=== PATIENT | female | born 1970 | race Caucasian/White ===

== ENCOUNTER 2021-07-01 13:51 | Emergency (ER) | payer OTHER ==
[~2021-07-01] VITALS: Ht 165.1 cm; Wt 96.0 kg
[2021-07-01 14:08] VITALS: BP 122/67
[2021-07-01] MEDS ORDERED: ONDANSETRON 4MG ODT PO STA (17:03)
[2021-07-01] MEDS ORDERED: MAGNESIUM/ALUMINUM HYDROXIDE/SIMETHICONE 30ML UDC PO STA (17:03)
[2021-07-01] MEDS ORDERED: FAMOTIDINE 20MG TABLET PO ONE (17:15)
[2021-07-01 17:31] LABS: BASOPHILS % 0.7 % (0.0-2.0); EOSINOPHILS % 1.4 % (0.0-5.0); HEMATOCRIT. 41.1 % (36.0-48.0); HEMOGLOBIN. 14.1 g/dL (12.0-16.0); LYMPHOCYTES % 38.5 % (20.0-50.0); MEAN CORPUSCULAR HEMOGLOBIN 28.8 pg (28.0-32.0); MEAN CORPUSCULAR VOLUME 83.8 fL (81.0-99.0); MEAN PLATELET VOLUME 8.1 fl (7.4-10.4); MONOCYTES % 7.9 % (2.0-8.0); NEUTROPHILS % 51.5 % (40.0-76.0); PLATELET 284 x1000/uL (130-400); RED CELL DISTRIBUTION WIDTH 13.5 % (11.6-14.6)
[2021-07-01 17:39] LABS: CHLORIDE 111 mEq/L (98-107)
[2021-07-01 17:51] LABS: CLARITY URINE CLEAR (CLEAR); COLOR URINE YELLOW (YELLOW); KETONES URINE NEGATIVE (NEGATIVE); LEUKOCYTE ESTERASE URINE TRACE (NEGATIVE); NITRITE URINE NEGATIVE (NEGATIVE); OCCULT BLOOD URINE NEGATIVE (NEGATIVE); PH URINE 5.5 (4.5-8.0); PROTEIN URINE NEGATIVE (NEGATIVE); SPECIFIC GRAVITY URINE 1.029 (1.005-1.030); UROBILINOGEN URINE 0.2 E.U./dL (0.2-1.0)
[2021-07-01] MEDS ORDERED: PROT40 MT (19:29)
== END 2021-07-01 19:50 | disposition home or self-care (01) ==
LOC: ER 13:51
DX: R10.13 Epigastric pain (principal); Z90.49 Acquired absence of other specified parts of digestive tract
CPT/HCPCS: 36415; 76705; 80053; 81003; 83690; 84484; 85025; 93005; 99285; Q0162

== ENCOUNTER 2021-12-28 14:37 | Emergency (ER) | payer OTHER ==
[~2021-12-28] VITALS: Ht 162.6 cm; Wt 90.0 kg
[~2021-12-28 14:37] MED LIST: PROT40 MT
[2021-12-28] MEDS ORDERED: KETOROLAC 60MG/2ML VIAL IM STA (15:08)
[2021-12-28] MEDS ORDERED: ACETAMINOPHEN WITH CODEINE 300/30MG TABLET PO STA (16:33)
[2021-12-28] MEDS ORDERED: TRAM50TA3 MT (17:05)
[2021-12-28] MEDS ORDERED: NAPR-681 PO (17:05)
[2021-12-28 17:22] VITALS: BP 121/61
== END 2021-12-28 18:23 | disposition home or self-care (01) ==
LOC: ER 14:37
DX: M25.562 Pain in left knee (principal); S80.02XA Contusion of left knee, initial encounter; S70.02XA Contusion of left hip, initial encounter; W01.0XXA Fall on same level from slipping, tripping and stumbling without subsequent striking against object, initial encounter; Y93.89 Activity, other specified; Y92.9 Unspecified place or not applicable; Z87.19 Personal history of other diseases of the digestive system; Z90.49 Acquired absence of other specified parts of digestive tract
CPT/HCPCS: 73502; 73562; 96372; 99284; J1885